=== PATIENT | female | born 1955 | race Caucasian/White ===

== ENCOUNTER → 2017-02-05 | Outpatient (CLI) | payer BC ==
--- NOTE | 2017-02-05 13:59 | RAD ---
DATE: 02/05/2017 EXAM: MAMMO LISSETT SCREENING BILATERAL HISTORY: Screening COMPARISON: One year earlier This study was interpreted with the benefit of Computerized Aided Detection (CAD). FINDINGS: The breast parenchyma shows scattered fibroglandular densities. Breast parenchyma level B there is a well-defined small mass in the right breast similar to the previous exam a significant change in the appearance of the breasts compared to the previous exam is not seen. IMPRESSION: Benign findings. BI-RADS CATEGORY: 2 BENIGN FINDING(S) RECOMMENDED FOLLOW-UP: 12M 12 MONTH FOLLOW-UP PQRS compliance statement: Patient information was entered into a reminder system with a target due date 02/05/2018 for the next mammogram. Mammography is a sensitive method for finding small breast cancers, but it does not detect them all and is not a substitute for careful clinical examination. A negative mammogram does not negate a clinically suspicious finding and should not result in delay in biopsying a clinically suspicious abnormality. "Our facility is accredited by the [employer] Mammography [employer]."
== END | disposition home or self-care (01) ==
LOC: MAMMO 08:06
PROVIDERS: ATTEND Nurse Practitioner Family
DX: Z12.31 Encounter for screening mammogram for malignant neoplasm of breast (principal)
CPT/HCPCS: 77063; G0202; 77067

== ENCOUNTER → 2017-02-07 | Outpatient (CLI) | payer BC ==
--- NOTE | 2017-02-07 10:29 | RAD ---
Bone densitometry scan, 02/07/2017: History: Osteoporosis screening The lumbar spine and right hip were examined utilizing a DEXA technique. The bone mineral density in the lumbar spine as measured from the L1-L4 levels is 0.89 g/sq cm. This yields a T score of -2.4 compatible with osteopenia. A similar T score of- 2.5 was obtained on the previous study of 02/23/2014. The total T score at the right hip is -2.0, also compatible with osteopenia. The right hip T score on the previous study was -1.7. IMPRESSION: Osteopenia
== END | disposition home or self-care (01) ==
LOC: DXRAD 09:58
PROVIDERS: ATTEND Nurse Practitioner Family
DX: M81.0 Age-related osteoporosis without current pathological fracture (principal); M85.80 Other specified disorders of bone density and structure, unspecified site
CPT/HCPCS: 77080

== ENCOUNTER → 2017-04-20 | Outpatient (CLI) | payer BC ==
[~2017-04-20] VITALS: Ht 162.6 cm; Wt 63.5 kg
[~2017-04-20] MED LIST: SINCALIDE 1.27 MCG in IV NORMAL SALINE 50ML 30 ML IV ONE
--- NOTE | 2017-04-20 11:50 | RAD ---
Hepatobiliary scan with ejection fraction History: Epigastric abdominal pain for 3 months. Procedure: Serial static images are obtained of the liver and biliary system in the frontal projection following IV administration of 5.2 mCi of 99 M technetium Choletec. After filling of the gallbladder, 1.3 mcg of cholecystokinin was administered intravenously, additional imaging was performed for 30 minutes, and gallbladder ejection fraction was measured. Findings: There is homogeneous distribution throughout the liver. There is normal filling of the gallbladder and normal emptying into the biliary system and small bowel. The gallbladder ejection fraction measures 36% (normal gallbladder EF is 35% or greater). Impression: 1. No evidence of acute or chronic cholecystitis. Normal gallbladder ejection fraction.
--- NOTE | 2017-04-20 11:54 | RAD ---
Right upper quadrant abdominal ultrasound History: Epigastric abdominal pain for 3 months. Comparison: None. Technique: Transabdominal ultrasound images are obtained. Findings: Visualized pancreas is unremarkable. Liver is normal in echogenicity. No focal hepatic masses are identified. Calcified hepatic granulomata are seen. Gallbladder has an unremarkable appearance. Common bile duct measures normally at 4 mm in diameter. The right kidney measures 10.0 cm in length and is without evidence of obstruction or stone. Visualized portions of the IVC have normal caliber. Impression: Unremarkable right upper quadrant ultrasound.
== END | disposition home or self-care (01) ==
LOC: US 08:33
PROVIDERS: ATTEND Internal Medicine Gastroenterology
DX: R10.13 Epigastric pain (principal)
CPT/HCPCS: 76705; 78226; 96374; 96375; A9537; J2805

== ENCOUNTER → 2018-02-19 | Outpatient (CLI) | payer BC ==
--- NOTE | 2018-02-20 08:54 | RAD ---
DATE: 02/19/2018 EXAM: MAMMO LISSETT SCREENING BILATERAL HISTORY: Routine screening COMPARISON: 02/05/2017 This study was interpreted with the benefit of Computerized Aided Detection (CAD) The breast parenchyma shows scattered fibroglandular densities. Breast parenchyma level B. FINDINGS: 2-D and 3-D tomosynthesis imaging was performed in CC and MLO projections. The fibroglandular densities are somewhat nodular in character. No new or enlarging breast densities are seen. Minimal benign type calcification is present. No suspicious microcalcifications have developed. IMPRESSION: Stable mammograms without evidence of malignancy. BI-RADS CATEGORY: 2 BENIGN FINDING(S) RECOMMENDED FOLLOW-UP: 12M 12 MONTH FOLLOW-UP PQRS compliance statement: Patient information was entered into a reminder system with a target due date for the next mammogram. Mammography is a sensitive method for finding small breast cancers, but it does not detect them all and is not a substitute for careful clinical examination. A negative mammogram does not negate a clinically suspicious finding and should not result in delay in biopsying a clinically suspicious abnormality. "Our facility is accredited by the [employer] Mammography [employer]."
== END | disposition home or self-care (01) ==
LOC: MAMMO 07:56
PROVIDERS: ATTEND Nurse Practitioner Family
DX: Z12.31 Encounter for screening mammogram for malignant neoplasm of breast (principal)
CPT/HCPCS: 77063; 77067

== ENCOUNTER → 2019-02-20 | Outpatient (CLI) | payer BC ==
--- NOTE | 2019-02-21 09:06 | RAD ---
DATE: 02/20/2019 EXAM: MAMMO LISSETT SCREENING BILATERAL HISTORY: Routine screening COMPARISON: 02/19/2018 This study was interpreted with the benefit of Computerized Aided Detection (CAD). Breast Density: SCATTERED The breast parenchyma shows scattered fibroglandular densities. Breast parenchyma level B. FINDINGS: 2-D and 3-D tomosynthesis imaging was performed in CC and MLO projections. No new or enlarging breast densities are seen. No suspicious microcalcifications have developed. IMPRESSION: Stable mammograms without evidence of malignancy. BI-RADS CATEGORY: 2 BENIGN FINDING(S) RECOMMENDED FOLLOW-UP: 12M 12 MONTH FOLLOW-UP PQRS compliance statement: Patient information was entered into a reminder system with a target due date for the next mammogram. Mammography is a sensitive method for finding small breast cancers, but it does not detect them all and is not a substitute for careful clinical examination. A negative mammogram does not negate a clinically suspicious finding and should not result in delay in biopsying a clinically suspicious abnormality. "Our facility is accredited by the [employer] Mammography [employer]."
== END | disposition home or self-care (01) ==
LOC: MAMMO 09:04
PROVIDERS: ATTEND Family Medicine
DX: Z12.31 Encounter for screening mammogram for malignant neoplasm of breast (principal)
CPT/HCPCS: 77063; 77067

== ENCOUNTER → 2020-03-23 | Outpatient (CLI) | payer BC ==
--- NOTE | 2020-03-24 16:20 | RAD ---
History: Routine Screening. Technique: Bilateral digital mammographic routine views were obtained with 2-D and 3-D technique including CAD - computer aided detection. Comparison: 02/20/2019. Findings: Breast Tissue Density A : The breast tissue is predominately fatty replaced. There are no suspicious masses, microcalcifications or areas of architectural distortion. Impression: Negative mammogram. BI-RADS Category 1: Negative. Normal interval followup. . A mammogram does not have 100% sensitivity and therefore a negative imaging study should not delay further work up of a suspicious abnormality. The patient will receive a letter with the results in the mail. Patient information is entered into the reminder system with a target due date for the next screening mammogram. The patient will receive a reminder. "Our facility is accredited by the [employer] Mammography [employer]." BI-RADS 1 -- negative findings (within normal)
== END | disposition home or self-care (01) ==
LOC: MAMMO 07:49
PROVIDERS: ATTEND Family Medicine
DX: Z12.31 Encounter for screening mammogram for malignant neoplasm of breast (principal)
CPT/HCPCS: 77063; 77067

== ENCOUNTER → 2020-08-04 | Outpatient (CLI) | payer MEDICARE ==
--- NOTE | 2020-08-04 10:43 | RAD ---
Bone mineral density exam History: Osteoporosis, takes thyroid medication Comparison: 02/07/2017 Findings: Bone mineral density examination utilizing DEXA was performed. Right hip bone mineral density of 696 mg/cm2 corresponds with a T score -2.1, Z score -0.8. There has been -2.1 % decrease. The bone mineral density of the lumbar spine was 0.818 g/cm2 which corresponds with a T-score of -3.0, Z score -1.3. There has been -8% decrease. By [employer] on Osteoporosis criteria, a T score of 0 to-1 SD is considered to be within normal limits. A T score of -1 to -2.5 SD is considered osteopenia. A T score less than -2.5 SD is considered osteoporosis Impression: 1. There is osteoporosis of the lumbar spine. There is osteopenia of the right hip. Electronically signed by: Jimbo Pink MD (08/04/2020 10:40 AM) [id number]
== END | disposition home or self-care (01) ==
LOC: DXRAD 09:56
PROVIDERS: ATTEND Family Medicine
DX: M81.0 Age-related osteoporosis without current pathological fracture (principal); M81.8 Other osteoporosis without current pathological fracture; M85.88 Other specified disorders of bone density and structure, other site
CPT/HCPCS: 77080

== ENCOUNTER → 2020-09-17 | Outpatient (CLI) | payer MEDICARE | LOC: LAB 10:16 | PROVIDERS: ATTEND Nurse Anesthetist, Certified Registered | DX: Z01.812 Encounter for preprocedural laboratory examination (principal); Z20.828 Contact with and (suspected) exposure to other viral communicable diseases; Z12.11 Encounter for screening for malignant neoplasm of colon | CPT/HCPCS: U0003 ==

== ENCOUNTER → 2020-09-21 | Day surgery (SDC) | payer MEDICARE ==
[~2020-09-21] MED LIST changes: +IPRATRPIUM/ALBUTEROL 0.5/2.5MG 3 ML NEBU. NEB PRN; +IV RINGERS SOLUTION,LACTATED 1,000 ML IV SCH; +MIDAZOLAM HCL PF 2 MG/2 ML VIAL. IV ONE; +ONDANSETRON PF 4 MG/2 ML VIAL. IV PRN; +PROPOFOL 10,000 MCG/ML (20ML) VIAL IV ONE; -SINCALIDE 1.27 MCG in IV NORMAL SALINE 50ML 30 ML IV ONE
[2020-09-21 08:41] VITALS: BP 115/75
--- NOTE | 2020-09-23 23:11 | PATHOLOGY ---
[facility] Accession Number: [id number] . 01 Material submitted: . PART A: cecum - CECAL POLYP PART B: colon - ASCENDING COLON POLYP. Modifiers: ascending PART C: colon - TRANSVERSE POLYP. Modifiers: transverse PART D: colon - DESCENDING POLYP. Modifiers: descending . 02 Diagnosis: A. "Cecal polyp", biopsy: - Tubular adenoma; no high-grade dysplasia. . B. "Ascending colon polyp", biopsy: - Tubular adenoma; no high-grade dysplasia. - Hyperplastic polyp. . C. "Transverse polyp", biopsy: - Tubular adenoma; no high-grade dysplasia. . D. "Descending polyp", biopsy: - Tubular adenoma; no high-grade dysplasia. (CLW:[facility]; 09/23/2020) [facility] [place] 1245 Local . 02 Electronically signed: . Almita Myers MD, Pathologist NPI- [id number] . 01 Gross description: . A. The specimen is received in formalin, labeled "Hoffmann, Jonna, cecal polyp" and consists of a fragment of pink-warren tissue measuring 0.6 x 0.3 cm which is entirely submitted in A1. . B. The specimen is received in formalin, labeled "Hoffmann, Jonna, ascending colon polyp x2" and consists of 2 fragments of pink-warren tissue measuring 0.4 x 0.3 cm and 0.3 x 0.3 cm which are entirely submitted in B1. . C. The specimen is received in formalin, labeled "Hoffmann, Jonna, transverse polyp x2" and consists of 2 fragments of pink-warren tissue measuring 0.3 x 0.3 cm and 0.5 x 0.2 cm which are entirely submitted in C1. . D. The specimen is received in formalin, labeled "Hoffmann, Jonna, descending polyp" and consists of 3 fragments of warren tissue measuring between 0.2 x 0.2 cm and 0.4 x 0.2 cm which are entirely submitted in D1. (SDY; 09/22/2020) SYU/SYU 09/22/2020 1133 Local . 02 Pathologist provided ICD-10: D12.0, D12.2, K63.5, D12.3, D12.4 . 02 CPT . 482168, [id number], [id number], [id number] Specimen Comment: A courtesy copy of this report has been sent to [phone], [phone] Specimen Comment: [id number] Specimen Comment: Report sent to DR BLAND Performed at: [facility] [address] [facility] [address], [place] [id number] MD Franco Hoang MD Phone: [phone] Performed at: [facility] [address], [place] [id number] MD Esau Laughlin MD Phone: [phone]
== END | disposition home or self-care (01) ==
LOC: SURG 06:32
PROVIDERS: ATTEND Emergency Medicine
DX: Z12.11 Encounter for screening for malignant neoplasm of colon (principal); K57.30 Diverticulosis of large intestine without perforation or abscess without bleeding; D12.2 Benign neoplasm of ascending colon; D12.3 Benign neoplasm of transverse colon; D12.4 Benign neoplasm of descending colon; D12.0 Benign neoplasm of cecum; M81.0 Age-related osteoporosis without current pathological fracture; Z88.8 Allergy status to other drugs, medicaments and biological substances; Z86.010 Personal history of colon polyps
CPT/HCPCS: 45380; J2704; J7120

== ENCOUNTER → 2021-05-19 | Outpatient (CLI) | payer MEDICARE ==
[2020-09-21 08:41] VITALS: BP 115/75
--- NOTE | 2021-05-19 10:46 | RAD ---
EXAM: Bilateral digital screening mammogram with tomosynthesis. HISTORY: 65-year-old female presents for screening mammography. TECHNIQUE: Full-field digital craniocaudal and mediolateral oblique 2D and 3D tomosynthesis images of both breasts are obtained for evaluation. Computer aided detection was applied. COMPARISON: 03/23/2020 BREAST PARENCHYMAL DENSITY: Level B - Scattered fibroglandular densities. FINDINGS: There is no new suspicious mass, microcalcification or region of architectural distortion. IMPRESSION: BI-RADS Category 2: Benign finding(s). RECOMMENDATION: Annual mammography is recommended. If your mammogram demonstrates that you have dense breast tissue, which could hide abnormalities, and if you have other risk factors for breast cancer that have been identified, you might benefit from s upplemental screening tests that may be suggested by your ordering physician. Dense breast tissue, i n and of itself, is a relatively common condition. This information is not provided to cause undue c oncern, but rather to raise your awareness and to promote discussion with your physician regarding th e presence of other risk factors, in addition to dense breast tissue. A report of your mammography re sults will be sent to you and your physician. You should contact your physician if you have any ques tions or concerns regarding this report. Mammography is a sensitive method for finding small breast cancers, but it does not detect them all a nd is not a substitute for careful clinical examination. A negative mammogram does not negate a clin ically suspicious finding and should not result in delay in biopsying a clinically suspicious abnorma lity. PQRS compliance statement - Patient information was entered into a reminder system with a target due date for the next mammogram. "Our facility is accredited by the [employer] Mammography [employer]." Electronically signed by: Terrie Antoine MD (05/19/2021 10:43 AM) [id number]
== END ==
LOC: MAMMO 09:05
PROVIDERS: ATTEND Family Medicine
DX: Z12.31 Encounter for screening mammogram for malignant neoplasm of breast (principal)
CPT/HCPCS: 77063; 77067